=== PATIENT | female | born 1985 | race Hispanic/Latino ===

== ENCOUNTER 2017-03-24 10:46 | Emergency (ER) | payer SELFPAY ==
[~2017-03-24] VITALS: Ht 160 cm; Wt 104.3 kg
[2017-03-24 11:23] LABS: BILIRUBIN,URINE NEGATIVE (NEGATIVE); KETONES,URINE NEGATIVE (NEGATIVE); LEUKOCYTE ESTERASE ,URINE 2+ (NEGATIVE); NITRITE,URINE NEGATIVE (NEGATIVE); PH,URINE 6 (5-9); PROTEIN,URINE 2+ (NEGATIVE); UROBILINOGEN,URINE NORMAL (NORMAL)
[2017-03-24] MEDS ORDERED: ONDANSETRON 4 MG/2 ML (SDV) Z0FRAN IVP ONE (11:30)
[2017-03-24] MEDS ORDERED: fentaNYL INJECTION 100 MCG/2 ML AMP IVP ONE (11:30)
[2017-03-24 11:59] LABS: BASOPHILS % (AUTO) 0 % (0-10); EOSINOPHILS # (AUTO) 0.2 10^3/uL (0.0-0.3); EOSINOPHILS % (AUTO) 3 % (0-10); LYMPHOCYTES % (AUTO) 30 % (12-44); MEAN CORPUSCULAR HEMOGLOBIN 25 PG (25-34); MEAN CORPUSCULAR HGB CONC 31 G/DL (32-36); MEAN CORPUSCULAR VOLUME 78 FL (80-99); MEAN PLATELET VOLUME 10.5 FL (7.4-10.4); MONOCYTES # (AUTO) 0.3 X 10^3 (0.0-1.0); MONOCYTES % (AUTO) 5 % (0-12); NEUTROPHILS # (AUTO) 4.4 X 10^3 (1.8-7.8); NEUTROPHILS % (AUTO) 63 % (42-75); PLATELET COUNT 288 10^3/uL (130-400); RED BLOOD COUNT 4.49 10^6/uL (4.35-5.85); RED CELL DISTRIBUTION WIDTH 16.3 % (10.0-14.5); WHITE BLOOD COUNT 6.9 10^3/uL (4.3-11.0)
[2017-03-24] MEDS ORDERED: HYDROmorphone (DILAUDID) 2 MG/ML VIAL IVP STA ×2 (12:08→15:49)
[2017-03-24 12:21] LABS: ALANINE AMINOTRANSFERASE 34 U/L (0-55); ALBUMIN 3.6 GM/DL (3.2-4.5); ANION GAP 12 MMOL/L (5-14); ASPARTATE AMINO TRANSFERASE 32 U/L (5-34); BILIRUBIN,TOTAL 0.2 MG/DL (0.1-1.0); BLOOD UREA NITROGEN 10 MG/DL (7-18); BUN/CREATININE RATIO 13; CALCIUM 8.9 MG/DL (8.5-10.1); CARBON DIOXIDE 17 MMOL/L (21-32); CHLORIDE 109 MMOL/L (98-107); CREATININE SERUM 0.76 MG/DL (0.60-1.30); GFR ESTIMATED > 60; GLUCOSE 122 MG/DL (70-105); SODIUM 138 MMOL/L (135-145); TOTAL PROTEIN 7.5 GM/DL (6.4-8.2)
[2017-03-24 12:22] LABS: POTASSIUM 4.5 MMOL/L (3.6-5.0)
[2017-03-24] MEDS ORDERED: HYDROmorphone (DILAUDID) 2 MG/ML VIAL IM STA (13:13)
[2017-03-24] MEDS ORDERED: CATHETER FLUSH 10 ML SYR IV PRN (13:15)
[2017-03-24] MEDS ORDERED: LORazepam INJ 2 MG/ML (ATIVAN) VIAL IVP ONE (13:15)
[2017-03-24] MEDS ORDERED: NS 100 ML (IVPB) BAG IV ONE (13:15)
[2017-03-24] MEDS ORDERED: IOHEXOL 350 MG/ML 100 ML (OMNIPAQUE 350) VIAL IV ONE (13:15)
--- NOTE | 2017-03-24 13:34 | ED Abdominal Pain ---
General Chief Complaint: Abdominal/GI Problems Stated Complaint: LOWER ABD PAIN Nursing Triage Note: pt ambulated to room. pt complains of very sharp pain in her lower abd since about a week ago. she states she started her period a week ago and thought it was just something with her period but it hasn't resolved. nausea, vomiting, and diarrhea noted. Sepsis Screen: No Definite Risk Source of Information: Patient Exam Limitations: No Limitations History of Present Illness Time Seen By Provider: 10:51 Initial Comments This 31-year-old woman presents to emergency room with rather intense suprapubic /pelvic pain. Her pain has been present for about one week. Onset of pain coincided with start of her menstrual cycle. She reports her cycle was very heavy with a lot of cramping. The pain has intensified despite the decreased bleeding with her cycle. She now only has some dark flecks of discharge. She denies any unusual discharge other than her menstrual bleeding. She reports the pain was intense and woke her up at 02:00 yesterday morning and has intensified over the last 24 hours. She has had some nausea, vomiting, and diarrhea. She denies any fever. She does state a history of ovarian cysts and endometriosis. Pain is centrally located in the suprapubic region but left seems a little greater than right. Pain also seems to be colicky, coming in waves of intensity. Patient recently moved here from [place] and does not yet have a local physician. Allergies and Home Medications Allergies Coded Allergies: morphine (Verified Allergy, Mild, HIVES, 03/24/17) Fentanyl is ok. topiramate (Verified Adverse Reaction, Unknown, 03/24/17) Home Medications Hyoscyamine Sulfate 0.125 Mg Tab.subl, 0.125 MG SL Q4H PRN for CRAMPS, #10 Prescribed by: MOE CHAN on 03/24/17 1557 Metronidazole 500 Mg Tablet, 500 MG PO BID, #14 Prescribed by: MOE CHAN on 03/24/17 1558 Ondansetron 4 Mg Tab.rapdis, 4 MG SL Q4H PRN for NAUSEA/VOMITING-1ST LINE, #10 Prescribed by: MOE CHAN on 03/24/17 1557 Oxycodone HCl/Acetaminophen 1 Each Tablet, 1-2 EACH PO Q6H, #14 Prescribed by: MOE CHAN on 03/24/17 3949 Review of Systems Constitutional: no symptoms reported EENTM: No Symptoms Reported Respiratory: No Symptoms Reported Cardiovascular: No Symptoms Reported Gastrointestinal: See HPI Genitourinary: See HPI Musculoskeletal: no symptoms reported Skin: no symptoms reported Psychiatric/Neurological: No Symptoms Reported Endocrine: No Symptoms Reported Past Iisxdcz-Vugydb-Zlnchp Hx Patient Social History Alcohol Use: Denies Use Recreational Drug Use: No Smoking Status: Never a Smoker 2nd Hand Smoke Exposure: No Recent Foreign Travel: No Contact w/Someone Who Travel: No Recent Infectious Disease Expo: No Recent Hopitalizations: No Seasonal Allergies Seasonal Allergies: Yes Surgeries HX Surgeries: Yes Surgeries: Abdominal (exploratory surgery for endometriosis), Appendectomy, Gallbladder Respiratory Hx Respiratory Disorders: No Cardiovascular Hx Cardiac Disorders: No Neurological Hx Neurological Disorders: No Reproductive System : Yes Female Reproductive Disorders: Menstrual Problems, Endometriosis Genitourinary Hx Genitourinary Disorders: Yes Genitourinary Disorders: Kidney Stones Gastrointestinal Hx Gastrointestinal Disorders: Yes Gastrointestinal Disorders: Polyps Musculoskeletal Hx Musculoskeletal Disorders: No HEENT HX ENT Disorders: No Cancer Hx Cancer: No Psychosocial Hx Psychiatric Problems: No Integumentary HX Skin/Integumentary Disorder: No Physical Exam Vital Signs VS - Last 72 Hours, by Label 03/24/17 03/24/17 11:10 16:54 Temp 98.2 98.1 Pulse 97 90 Resp 20 20 B/P (MAP) 137/112 Pulse Ox 100 99 O2 Delivery Room Air Room Air Capillary Refill : Less Than 3 Seconds General Appearance: WD/WN, moderate distress, obese HEENT: normal ENT inspection Neck: normal inspection Respiratory: lungs clear, normal breath sounds, no respiratory distress, no accessory muscle use Cardiovascular: regular rate, rhythm, no edema, no murmur Gastrointestinal: normal bowel sounds, soft, tenderness (suprapubic region mildly tender to palpation) Genital/Rectal: normal genital exam, other (small red blood in the cervical os. Dark flecks of old blood in the vaginal vault. Cervical os is otherwise unremarkable. No cervical motion tenderness.) Extremities: normal inspection, no pedal edema Back: normal inspection Neurologic/Psychiatric: partner cco II-XII nml as tested, no motor/sensory deficits, alert, normal mood/affect, oriented x 3 Skin: normal color, warm/dry Progress/Results/Core Measures Results/Orders Lab Results Laboratory Tests Test 03/24/17 11:14 03/24/17 11:44 03/24/17 12:50 03/24/17 15:10 Range/Units Urine Color YELLOW YELLOW Urine Clarity SLIGHTLY CLOUDY CLEAR Urine pH 6 6.5 5-9 Urine Specific [place] 1.020 1.010 L 1.016-1.022 Urine Protein 2+ H 1+ H NEGATIVE Urine Glucose (UA) NEGATIVE NEGATIVE NEGATIVE Urine Ketones NEGATIVE NEGATIVE NEGATIVE Urine Nitrite NEGATIVE NEGATIVE NEGATIVE Urine Bilirubin NEGATIVE NEGATIVE NEGATIVE Urine Urobilinogen NORMAL NORMAL NORMAL MG/DL Urine Leukocyte Esterase 2+ H NEGATIVE NEGATIVE Urine RBC (Auto) 5+ H NEGATIVE NEGATIVE Urine RBC 50-100 H NONE /HPF Urine WBC 2-5 NONE /HPF Urine Crystals NONE NONE /LPF Urine Bacteria TRACE NEGATIVE /HPF Urine Casts NONE NONE /LPF Urine Mucus NEGATIVE NEGATIVE /LPF Urine Culture Indicated NO NO White Blood Count 6.9 4.3-11.0 10^3/uL Red Blood Count 4.49 4.35-5.85 10^6/uL Hemoglobin 11.0 L 11.5-16.0 G/DL Hematocrit 35 35-52 % Mean Corpuscular Volume 78 L 80-99 FL Mean Corpuscular Hemoglobin 25 25-34 PG Mean Corpuscular Hemoglobin Concent 31 L 32-36 G/DL Red Cell Distribution Width 16.3 H 10.0-14.5 % Platelet Count 288 130-400 10^3/uL Mean Platelet Volume 10.5 H 7.4-10.4 FL Neutrophils (%) (Auto) 63 42-75 % Lymphocytes (%) (Auto) 30 12-44 % Monocytes (%) (Auto) 5 0-12 % Eosinophils (%) (Auto) 3 0-10 % Basophils (%) (Auto) 0 0-10 % Neutrophils # (Auto) 4.4 1.8-7.8 X 10^3 Lymphocytes # (Auto) 2.0 1.0-4.0 X 10^3 Monocytes # (Auto) 0.3 0.0-1.0 X 10^3 Eosinophils # (Auto) 0.2 0.0-0.3 10^3/uL Basophils # (Auto) 0.0 0.0-0.1 10^3/uL Sodium Level 138 135-145 MMOL/L Potassium Level 4.5 3.6-5.0 MMOL/L Chloride Level 109 H 98-107 MMOL/L Carbon Dioxide Level 17 L 21-32 MMOL/L Anion Gap 12 5-14 MMOL/L Blood Urea Nitrogen 10 7-18 MG/DL Creatinine 0.76 0.60-1.30 MG/DL Estimat Glomerular Filtration Rate > 60 BUN/Creatinine Ratio 13 Glucose Level 122 H 70-105 MG/DL Calcium Level 8.9 8.5-10.1 MG/DL Total Bilirubin 0.2 0.1-1.0 MG/DL Aspartate Amino Transf (AST/SGOT) 32 5-34 U/L Alanine Aminotransferase (ALT/SGPT) 34 0-55 U/L Alkaline Phosphatase 93 40-136 U/L Total Protein 7.5 6.4-8.2 GM/DL Albumin 3.6 3.2-4.5 GM/DL Serum Test, Qualitative NEGATIVE NEGATIVE Micro Results Microbiology 03/24/17 Genital Culture, Resulted Pending 03/24/17 KAILEY Preparation - Final, Resulted 03/24/17 Wet Prep - Final, Resulted My Orders Orders - MOE BUNCH MD Ua Culture If Indicated (03/24/17 10:51) Cbc With Automated Diff (03/24/17 11:21) Comprehensive Metabolic Panel (03/24/17 11:21) Hcg,Qualitative Serum (03/24/17 11:21) Saline Lock/Iv-Start (03/24/17 11:21) Ondansetron Injection (Zofran Injectio (03/24/17 11:30) Fentanyl Injection (Sublimaze Injection (03/24/17 11:30) Hydromorphone Injection (Dilaudid Inject (03/24/17 12:08) Ct Abdomen/Pelvis W (03/24/17 12:53) Iohexol Injection (Omnipaque 350 Mg/Ml 1 (03/24/17 13:15) Sodium Chloride Flush (Catheter Flush Sy (03/24/17 13:15) Ns (Ivpb) (Sodium Chloride 0.9% Ivpb Bag (03/24/17 13:15) Hydromorphone Injection (Dilaudid Inject (03/24/17 13:13) Lorazepam Injection (Ativan Injection) (03/24/17 13:15) Wet Prep (03/24/17 13:27) Neisseria Gonorrhea Dna (03/24/17 13:27) Chlamydia Dna (03/24/17 13:27) Genital Culture (03/24/17 13:27) Kailey Prep (03/24/17 13:27) Hyoscyamine Sl Tablet (Levsin Sl Tablet) (03/24/17 14:00) Promethazine Injection (Phenergan Injec (03/24/17 14:00) Ketorolac Injection (Toradol Injection) (03/24/17 14:30) Straight Cath (Urinary) (03/24/17 14:41) Lidocaine 2% Viscous 15 Ml (Xylocaine Vi (03/24/17 15:00) Ua Culture If Indicated (03/24/17 15:03) Ceftriaxone Injection (Rocephin Injectio (03/24/17 16:00) Azithromycin Tablet (Zithromax Tablet) (03/24/17 16:00) Hydromorphone Injection (Dilaudid Inject (03/24/17 15:49) Medications Given in ED Current Medications Medications Dose Ordered Sig/More Route Start Time Stop Time Status Last Admin Dose Admin Azithromycin 500 mg ONCE ONCE PO 03/24/17 16:00 03/24/17 16:01 DC 03/24/17 16:16 500 MG Ceftriaxone Sodium 1000 mg/ Sodium Chloride 50 ml @ 100 mls/hr ONCE ONCE IV 03/24/17 16:00 03/24/17 16:29 DC 03/24/17 16:17 100 MLS/HR Fentanyl Citrate 75 mcg ONCE ONCE IVP 03/24/17 11:30 03/24/17 11:31 DC 03/24/17 11:47 75 MCG Hyoscyamine Sulfate 0.25 mg ONCE ONCE SL 03/24/17 14:00 03/24/17 14:01 DC 03/24/17 14:00 0.25 MG Iohexol 100 ml ONCE ONCE IV 03/24/17 13:15 03/24/17 13:16 DC 03/24/17 13:33 100 ML Ketorolac Tromethamine 30 mg ONCE ONCE IVP 03/24/17 14:30 03/24/17 14:31 DC 03/24/17 14:33 30 MG Lidocaine HCl 15 ml ONCE ONCE MM 03/24/17 15:00 03/24/17 15:01 DC 03/24/17 14:58 15 ML Lorazepam 0.5 mg ONCE ONCE IVP 03/24/17 13:15 03/24/17 13:16 DC 03/24/17 13:22 0.5 MG Ondansetron HCl 8 mg ONCE ONCE IVP 03/24/17 11:30 03/24/17 11:31 DC 03/24/17 11:49 8 MG Promethazine HCl 12.5 mg ONCE ONCE IVP 03/24/17 14:00 03/24/17 14:01 DC 03/24/17 14:04 12.5 MG Sodium Chloride 10 ml NEEDED PRN IV 03/24/17 13:15 03/24/17 17:11 DC 03/24/17 13:33 10 ML Sodium Chloride 100 ml ONCE ONCE IV 03/24/17 13:15 03/24/17 13:16 DC 03/24/17 13:33 80 ML Vital Signs/I&O Vital Sign - Last 12Hours 03/24/17 03/24/17 11:10 16:54 Temp 98.2 98.1 Pulse 97 90 Resp 20 20 B/P (MAP) 137/112 Pulse Ox 100 99 O2 Delivery Room Air Room Air Blood Pressure Mean: 120 Progress Note #1: Time: 13:35 Progress Note Patient has required multiple doses of narcotics for pain control. CT scan of the abdomen and pelvis has been ordered. Pelvic exam showed small old blood in the vaginal vault and small bright red blood within the cervical os. Vaginal exam was otherwise unremarkable. Progress Note #2: Progress Note No source of patient's pain was ultimately identified. It was presumed to be related to endometriosis. A repeat UA obtained by straight catheterization was obtained. No blood was seen. I discussed the case with Dr. LARRY who was agreeable to seeing her in the clinic. An appointment was scheduled for April 14. Prescriptions were provided as below. Diagnostic Imaging Diagonstic Imaging: CT Plain Films/CT/US/NM/MRI: abdomen, pelvis Comments CT abdomen and pelvis viewed by me and report reviewed. See report below: NAME: LAAZRO HARO [facility] REC#: [id number] PT STATUS: REG ER : 1985 PHYSICIAN: MOE BUNCH MD ADMIT DATE: 03/24/17/ER Draft Date of Exam:03/24/17 CT ABDOMEN/PELVIS W PROCEDURE: CT abdomen and pelvis with contrast. TECHNIQUE: Multiple contiguous axial images were obtained through the abdomen and pelvis after administration of intravenous contrast. INDICATION: Abdominal pain. History of endometriosis. 100 mL of Omnipaque 350 is administered intravenously. FINDINGS: The lung bases appear clear. The liver, the spleen, the adrenals and the pancreas appear unremarkable. Cholecystectomy clips are seen. The kidneys have symmetric enhancement and contrast excretion. The urinary bladder appear unremarkable. There is heterogenous enhancement of the myometrium with no definitive discrete lesion identified. There is no adnexal mass. There is no bowel obstruction. The appendix is not clearly seen on this exam. There is a small fat-containing umbilical hernia. There is no fluid collection or free fluid in the abdomen or pelvis identified. There is evidence of scarring in the anterior abdominal wall in the right lower quadrant region. The abdominal aorta is normal in caliber. No para-aortic significantly enlarged lymph node is seen. The osseous structures appear grossly unremarkable. IMPRESSION: 1. Tiny fat-containing umbilical hernia. 2. The appendix is not clearly identified and evaluated on this exam. No significant abnormality is seen otherwise. Dictated on workstation # [id number] Dict: 03/24/17 1354 Trans: 03/24/17 1405 [id number] Interpreted by: ZACKERY AMADOR MD Departure Impression Impression: Primary Impression: Pelvic pain Additional Impressions: Bacterial vaginosis Nausea and vomiting Qualified Codes: R11.2 - Nausea with vomiting, unspecified Disposition: 01 HOME, SELF-CARE Condition: Improved Departure-Patient Inst. Decision time for Depature: 15:50 Referrals: JACKI LARRY,LOCAL PHYSICIAN (PCP) Primary Care Physician Patient Instructions: Acute Abdomen (Belly Pain), Adult (DC) Add. Discharge Instructions: You may take Toradol or ibuprofen for primary pain control. Take Percocet as prescribed for pain not controlled by these medications. Use Zofran (ondansetron) as prescribed for nausea and vomiting. Take Levsin (hyoscyamine) for cramping. Follow-up with Dr. LARRY on April 14 at 10:30. His contact information is listed below. You should also establish with a primary care provider soon as possible. All discharge instructions reviewed with patient and/or family. Voiced understanding. Scripts Oxycodone HCl/Acetaminophen (Percocet 5-325 mg Tablet) 1 Each Tablet 1-2 EACH PO Q6H, #14 TAB Prov: MOE BUNCH MD 03/24/17 Metronidazole (Flagyl) 500 Mg Tablet 500 MG PO BID, #14 TAB Prov: MOE BUNCH MD 03/24/17 Ondansetron (Zofran Odt) 4 Mg Tab.rapdis 4 MG SL Q4H Y for NAUSEA/VOMITING-1ST LINE, #10 TAB Prov: MOE BUNCH MD 03/24/17 Hyoscyamine Sulfate (Levsin-Sl) 0.125 Mg Tab.subl 0.125 MG SL Q4H Y for CRAMPS, #10 TAB Prov: MOE BUNCH MD 03/24/17 Copy Copies To 1: JACKI LARRY JOSHUA T MD Mar 24, 2017 13:34
[2017-03-24] MEDS ORDERED: HYOSCYAMINE 0.125 MG (LEVSIN) TAB SL ONE (14:00)
[2017-03-24] MEDS ORDERED: PROMETHAZINE INJ 25 MG/ML (PHENERGAN) AMP IVP ONE (14:00)
--- NOTE | 2017-03-24 14:06 | Diagnostic Imaging Report ---
PROCEDURE: CT abdomen and pelvis with contrast. TECHNIQUE: Multiple contiguous axial images were obtained through the abdomen and pelvis after administration of intravenous contrast. INDICATION: Abdominal pain. History of endometriosis. 100 mL of Omnipaque 350 is administered intravenously. FINDINGS: The lung bases appear clear. The liver, the spleen, the adrenals and the pancreas appear unremarkable. Cholecystectomy clips are seen. The kidneys have symmetric enhancement and contrast excretion. The urinary bladder appear unremarkable. There is heterogenous enhancement of the myometrium with no definitive discrete lesion identified. There is no adnexal mass. There is no bowel obstruction. The appendix is not clearly seen on this exam. There is a small fat-containing umbilical hernia. There is no fluid collection or free fluid in the abdomen or pelvis identified. There is evidence of scarring in the anterior abdominal wall in the right lower quadrant region. The abdominal aorta is normal in caliber. No para-aortic significantly enlarged lymph node is seen. The osseous structures appear grossly unremarkable. IMPRESSION: 1. Tiny fat-containing umbilical hernia. 2. The appendix is not clearly identified and evaluated on this exam. No significant abnormality is seen otherwise. Dictated by: Dictated on workstation # [id number]
[2017-03-24] MEDS ORDERED: KETOROLAC 30 MG/ML VIAL IVP ONE (14:30)
[2017-03-24] MEDS ORDERED: LIDOCAINE 2% VISCOUS 15 ML UDC MM ONE (15:00)
[2017-03-24 15:21] LABS: BILIRUBIN,URINE NEGATIVE (NEGATIVE); KETONES,URINE NEGATIVE (NEGATIVE); LEUKOCYTE ESTERASE ,URINE NEGATIVE (NEGATIVE); NITRITE,URINE NEGATIVE (NEGATIVE); PH,URINE 6.5 (5-9); PROTEIN,URINE 1+ (NEGATIVE); UROBILINOGEN,URINE NORMAL (NORMAL)
[2017-03-24] MEDS ORDERED: ONDA4TAB8 SL (15:57)
[2017-03-24] MEDS ORDERED: HYDR-3812 PO (15:57)
[2017-03-24] MEDS ORDERED: HYOS0.1283 SL (15:57)
[2017-03-24] MEDS ORDERED: METR500T PO (15:58)
[2017-03-24] MEDS ORDERED: cefTRIAXone INJECTION 1,000 MG in NS (IVPB) 50 ML IV ONE (16:00)
[2017-03-24] MEDS ORDERED: AZITHROMYCIN 250 MG TAB (ZITHROMAX) PO ONE (16:00)
[2017-03-24 16:54] VITALS: BP 124/81
[2017-03-24] MEDS ORDERED: OXYC-197 PO (16:59)
== END 2017-03-24 16:54 | disposition home or self-care (01) ==
LOC: ER 10:50
DX: N76.0 Acute vaginitis (principal); R11.2 Nausea with vomiting, unspecified; N80.9 Endometriosis, unspecified; Z87.442 Personal history of urinary calculi; Z87.19 Personal history of other diseases of the digestive system; Z87.42 Personal history of other diseases of the female genital tract; Z90.49 Acquired absence of other specified parts of digestive tract; Z98.890 Other specified postprocedural states
CPT/HCPCS: 36415; 51702; 74177; 80053; 81000; 84703; 85025; 87070; 87210; 87491; 87591; 96365; 96372; 96375; 96376

== ENCOUNTER 2017-04-16 11:42 | Emergency (ER) | payer SELFPAY ==
[~2017-04-16] VITALS: Ht 152.4 cm; Wt 104.3 kg
[~2017-04-16 11:42] MED LIST: HYDR-3812 PO; HYOS0.1283 SL; METR500T PO; ONDA4TAB8 SL; OXYC-197 PO
--- NOTE | 2017-04-16 11:57 | ED Abdominal Pain ---
General Stated Complaint: LEFT LOWER SIDE PAIN Source of Information: Patient Exam Limitations: No Limitations History of Present Illness Time Seen By Provider: 11:55 Initial Comments To ER with left lower quadrant abdominal pain. This began last night. She believes this to be the onset of her menstrual cycle. She states that she's had troubles with intense menstrual pain before but never this bad. She does report vaginal bleeding but no other vaginal discharge. No fevers or chills. She does report nausea. She was here about 3 weeks ago for pelvic pain as well as extensive workup done. She took Motrin, aspirin and oxycodone at home Timing/Duration: 1-2 Days Severity/Quality: Cramping Associated Symptoms: Nausea/Vomiting Allergies and Home Medications Allergies Coded Allergies: morphine (Verified Allergy, Mild, HIVES, 03/24/17) Fentanyl is ok. topiramate (Verified Adverse Reaction, Unknown, 03/24/17) Home Medications Hyoscyamine Sulfate 0.125 Mg Tab.subl, 0.125 MG SL Q4H PRN for CRAMPS, #10 Prescribed by: MOE CHAN on 03/24/17 1557 Metronidazole 500 Mg Tablet, 500 MG PO BID, #14 Prescribed by: MOE CHAN on 03/24/17 1558 Ondansetron 4 Mg Tab.rapdis, 4 MG SL Q4H PRN for NAUSEA/VOMITING-1ST LINE, #10 Prescribed by: MOE CHAN on 03/24/17 1557 Oxycodone HCl/Acetaminophen 1 Each Tablet, 1-2 EACH PO Q6H, #14 Prescribed by: MOE CHAN on 03/24/17 1659 Phenazopyridine HCl 100 Mg Tablet, 100 MG PO TID, #9 Prescribed by: GRECIA KIRK on 04/16/17 1237 Sulfamethoxazole/Trimethoprim 1 Each Tablet, 1 EACH PO BID, #10 Prescribed by: GRECIA KIRK on 04/16/17 1237 Review of Systems Constitutional: see HPI EENTM: No Symptoms Reported Respiratory: No Symptoms Reported Cardiovascular: No Symptoms Reported Gastrointestinal: See HPI, Abdominal Pain Genitourinary: No Symptoms Reported Musculoskeletal: no symptoms reported Skin: no symptoms reported Psychiatric/Neurological: No Symptoms Reported Endocrine: No Symptoms Reported Hematologic/Lymphatic: No Symptoms Reported Past Swbnsoz-Vwrxzq-Ubzyxr Hx Patient Social History 2nd Hand Smoke Exposure: No Recent Foreign Travel: No Contact w/Someone Who Travel: No Recent Hopitalizations: No Seasonal Allergies Seasonal Allergies: Yes Surgeries HX Surgeries: Yes Surgeries: Abdominal, Appendectomy, Gallbladder Respiratory Hx Respiratory Disorders: No Cardiovascular Hx Cardiac Disorders: No Neurological Hx Neurological Disorders: No Reproductive System Female Reproductive Disorders: Menstrual Problems, Endometriosis Genitourinary Hx Genitourinary Disorders: Yes Genitourinary Disorders: Kidney Stones Gastrointestinal Hx Gastrointestinal Disorders: Yes Gastrointestinal Disorders: Polyps Musculoskeletal Hx Musculoskeletal Disorders: No HEENT HX ENT Disorders: No Cancer Hx Cancer: No Psychosocial Hx Psychiatric Problems: No Integumentary HX Skin/Integumentary Disorder: No Physical Exam Vital Signs VS - Last 72 Hours, by Label 04/16/17 04/16/17 11:45 12:08 Temp 99.1 99.1 Pulse 70 Resp 16 B/P (MAP) 125/103 O2 Delivery Room Air Capillary Refill : General Appearance: WD/WN, no apparent distress HEENT: PERRL/EOMI, normal ENT inspection Neck: non-tender, full range of motion Respiratory: no respiratory distress, no accessory muscle use Cardiovascular: regular rate, rhythm, no murmur Gastrointestinal: normal bowel sounds, soft Extremities: normal range of motion, non-tender Neurologic/Psychiatric: alert, normal mood/affect, oriented x 3 Skin: normal color, warm/dry Exam Comments Patient questions why we are not starting an IV on her this time. Denies any improvement with Benadryl/Toradol. During her last visit here for similar pelvic pain she required multiple doses of IV opiates for pain control. She is new to the area. Progress/Results/Core Measures Results/Orders Lab Results Laboratory Tests Test 04/16/17 11:50 04/16/17 12:15 Range/Units Urine Color SHYANN H Urine Clarity SLIGHTLY CLOUDY Urine pH 6 5-9 Urine Specific [place] 1.010 L 1.016-1.022 Urine Protein 1+ H NEGATIVE Urine Glucose (UA) NEGATIVE NEGATIVE Urine Ketones NEGATIVE NEGATIVE Urine Nitrite NEGATIVE NEGATIVE Urine Bilirubin NEGATIVE NEGATIVE Urine Urobilinogen NORMAL NORMAL MG/DL Urine Leukocyte Esterase 2+ H NEGATIVE Urine RBC (Auto) 5+ H NEGATIVE Urine RBC >100 H /HPF Urine WBC 10-25 H /HPF Urine Squamous Epithelial Cells 5-10 /HPF Urine Crystals NONE /LPF Urine Bacteria TRACE /HPF Urine Casts NONE /LPF Urine Mucus NEGATIVE /LPF Urine Culture Indicated YES Urine Test NEGATIVE NEGATIVE Urine Opiates Screen NEGATIVE NEGATIVE Urine Oxycodone Screen POSITIVE H NEGATIVE Urine Methadone Screen NEGATIVE NEGATIVE Urine Propoxyphene Screen NEGATIVE NEGATIVE Urine Barbiturates Screen NEGATIVE NEGATIVE Ur Tricyclic Antidepressants Screen NEGATIVE NEGATIVE Urine Phencyclidine Screen NEGATIVE NEGATIVE Urine Amphetamines Screen NEGATIVE NEGATIVE Urine Methamphetamines Screen NEGATIVE NEGATIVE Urine Benzodiazepines Screen NEGATIVE NEGATIVE Urine Cocaine Screen NEGATIVE NEGATIVE Urine Cannabinoids Screen NEGATIVE NEGATIVE White Blood Count 10.4 4.3-11.0 10^3/uL Red Blood Count 4.98 4.35-5.85 10^6/uL Hemoglobin 12.1 11.5-16.0 G/DL Hematocrit 38 35-52 % Mean Corpuscular Volume 77 L 80-99 FL Mean Corpuscular Hemoglobin 24 L 25-34 PG Mean Corpuscular Hemoglobin Concent 32 32-36 G/DL Red Cell Distribution Width 15.4 H 10.0-14.5 % Platelet Count 375 130-400 10^3/uL Mean Platelet Volume 10.8 H 7.4-10.4 FL Neutrophils (%) (Auto) 77 H 42-75 % Lymphocytes (%) (Auto) 16 12-44 % Monocytes (%) (Auto) 6 0-12 % Eosinophils (%) (Auto) 1 0-10 % Basophils (%) (Auto) 0 0-10 % Neutrophils # (Auto) 8.0 H 1.8-7.8 X 10^3 Lymphocytes # (Auto) 1.7 1.0-4.0 X 10^3 Monocytes # (Auto) 0.6 0.0-1.0 X 10^3 Eosinophils # (Auto) 0.1 0.0-0.3 10^3/uL Basophils # (Auto) 0.0 0.0-0.1 10^3/uL My Orders Orders - GRECIA KIRK APRN Ua Culture If Indicated (04/16/17 11:47) Cbc With Automated Diff (04/16/17 11:47) Urine Bedside (04/16/17 11:47) Ketorolac Injection (Toradol Injection) (04/16/17 12:00) Diphenhydramine Injection (Benadryl Inje (04/16/17 12:00) Ondansetron Oral Dissolve Tab (Zofran (04/16/17 12:00) Drug Screen Stat (Urine) (04/16/17 11:53) Us Pelvic (Non Ob)[id number] (04/16/17 11:53) Hcg,Qualitative Urine (04/16/17 12:00) Urine Culture (04/16/17 11:50) Sulfamethoxazole/Trimet Ds Tab (Bactrim (04/16/17 12:30) Medications Given in ED Current Medications Medications Dose Ordered Sig/More Route Start Time Stop Time Status Last Admin Dose Admin Diphenhydramine HCl 25 mg ONCE ONCE IM 04/16/17 12:00 04/16/17 12:01 DC 04/16/17 12:08 25 MG Ketorolac Tromethamine 60 mg ONCE ONCE IM 04/16/17 12:00 04/16/17 12:01 DC 04/16/17 12:08 60 MG Ondansetron HCl 4 mg ONCE ONCE PO 04/16/17 12:00 04/16/17 12:01 DC 04/16/17 12:08 4 MG Vital Signs/I&O Vital Sign - Last 12Hours 04/16/17 04/16/17 11:45 12:08 Temp 99.1 99.1 Pulse 70 Resp 16 B/P (MAP) 125/103 O2 Delivery Room Air Departure Communication Progress Notes Patient states she could not go to a physician until her 's insurance kicked in the several months. She has not followed up with anybody since her last visit here 3 weeks ago. I did make an appointment for the patient with Sofia Carver at [facility] for May 09 at 1120 a.m. to establish care. She states that she is formerly from [place] but that she never went to a hospital there and this is her second encounter with a hospital for this pain.Formerly from [place] prior to living in [facility]. Impression Impression: Primary Impression: Pelvic pain Additional Impression: Urinary tract infection Disposition: 01 HOME, SELF-CARE Condition: Stable Departure-Patient Inst. Decision time for Depature: 12:27 Referrals: NO,LOCAL PHYSICIAN (PCP/Family) Primary Care Physician Patient Instructions: Urinary Tract Infection, Adult (DC) Add. Discharge Instructions: 1. I made an appointment for you with [facility] at 1120 a.m. on May 09 to establish care 2. Return to ER for any concerns such as fevers or lightheadedness 3. Antibiotics as directed 4. Scripts Phenazopyridine HCl (Pyridium) 100 Mg Tablet 100 MG PO TID, #9 TAB Prov: GRECIA KIRK APRN 04/16/17 Sulfamethoxazole/Trimethoprim (Bactrim Ds Tablet) 1 Each Tablet 1 EACH PO BID, #10 TAB Prov: GRECIA KIRK APRN 04/16/17 GRECIA KIRK APRN Apr 16, 2017 11:57
[2017-04-16] MEDS ORDERED: ONDANSETRON 4 MG (ZOFRAN) ORAL DISSOLVE TAB PO ONE (12:00)
[2017-04-16] MEDS ORDERED: KETOROLAC 60 MG/2 ML VIAL IM ONE (12:00)
[2017-04-16] MEDS ORDERED: diphenhydrAMINE 50 MG/ML INJ (BENADRYL) IM ONE (12:00)
[2017-04-16 12:08] LABS: BILIRUBIN,URINE NEGATIVE (NEGATIVE); KETONES,URINE NEGATIVE (NEGATIVE); LEUKOCYTE ESTERASE ,URINE 2+ (NEGATIVE); NITRITE,URINE NEGATIVE (NEGATIVE); PH,URINE 6 (5-9); PROTEIN,URINE 1+ (NEGATIVE); UROBILINOGEN,URINE NORMAL (NORMAL)
[2017-04-16 12:23] LABS: LYMPHOCYTES % (AUTO) 16 % (12-44); MEAN CORPUSCULAR HEMOGLOBIN 24 PG (25-34); MEAN CORPUSCULAR HGB CONC 32 G/DL (32-36); MEAN CORPUSCULAR VOLUME 77 FL (80-99); MEAN PLATELET VOLUME 10.8 FL (7.4-10.4); MONOCYTES % (AUTO) 6 % (0-12); NEUTROPHILS % (AUTO) 77 % (42-75); PLATELET COUNT 375 10^3/uL (130-400); RED BLOOD COUNT 4.98 10^6/uL (4.35-5.85); RED CELL DISTRIBUTION WIDTH 15.4 % (10.0-14.5); WHITE BLOOD COUNT 10.4 10^3/uL (4.3-11.0)
[2017-04-16 12:24] LABS: BASOPHILS % (AUTO) 0 % (0-10); EOSINOPHILS # (AUTO) 0.1 10^3/uL (0.0-0.3); EOSINOPHILS % (AUTO) 1 % (0-10); LYMPHOCYTES # (AUTO) 1.7 X 10^3 (1.0-4.0); MONOCYTES # (AUTO) 0.6 X 10^3 (0.0-1.0)
[2017-04-16] MEDS ORDERED: TRIM/SULFAMETH 160/800 (SEPTRA DS) TAB PO ONE (12:30)
[2017-04-16] MEDS ORDERED: SULF1TAB35 PO (12:37)
[2017-04-16] MEDS ORDERED: PHEN-639 PO (12:37)
[2017-04-16 12:51] VITALS: BP 125/103
--- NOTE | 2017-04-16 13:47 | Diagnostic Imaging Report ---
EXAMINATION: Transvaginal pelvic ultrasound. INDICATION: Pelvic pain. The patient is on oral contraceptives. FINDINGS: The uterus is 7.9 x 6.3 x 4.8 cm. The myometrium is slightly heterogenous with globular shape and hyperechoic foci seen. No discrete mass. This can be seen with adenomyosis. The endometrial stripe is 7 mm in thickness. The right ovary is 3.3 x 1.3 x 1.7 cm. The left ovary is not seen, probably obscured by bowel gas. There is a [id number] amount of complex fluid seen in the pelvis. IMPRESSION: Fvhnk-sg-qaiurcmk amount of complex fluid seen in the pelvis. This could relate to hemorrhage. The left ovary is not evaluated on this exam. Correlate clinically. Dictated by: Dictated on workstation # [id number]
== END 2017-04-16 12:40 | disposition home or self-care (01) ==
LOC: EDUNIT# 11:42 → ER 11:44
DX: N39.0 Urinary tract infection, site not specified (principal); N92.6 Irregular menstruation, unspecified; Z87.442 Personal history of urinary calculi; Z90.49 Acquired absence of other specified parts of digestive tract; Z32.02 Encounter for pregnancy test, result negative
CPT/HCPCS: 36415; 76830; 80306; 81000; 84703; 85025; 87077; 87088; 87186; 96372; 99284